=== PATIENT | female | born 1955 | race Caucasian/White ===

== ENCOUNTER → 2019-04-21 | Outpatient (CLI) | payer OTHER ==
[~2019-04-21] MED LIST: AMIT75TA PO; ASCO10004 PO; BIOT10TA PO; CALC-125 PO; CINN500C2 PO; CYAN-27 PO; DOCU-180 PO; GABA300C10 PO; GLUC1TAB27 PO; MV-M1TAB54 PO; NIAC500T9 PO; OXYC-432 PO; POTA99TA24 PO; TIZA4CAP PO
== END | disposition home or self-care (01) ==
LOC: STAR 11:13
PROVIDERS: ATTEND Orthopaedic Surgery
DX: Z01.818 Encounter for other preprocedural examination (principal); S92.345A Nondisplaced fracture of fourth metatarsal bone, left foot, initial encounter for closed fracture; M79.671 Pain in right foot; I10 Essential (primary) hypertension; M25.572 Pain in left ankle and joints of left foot; M51.34 Other intervertebral disc degeneration, thoracic region; M72.2 Plantar fascial fibromatosis; M76.62 Achilles tendinitis, left leg; M54.12 Radiculopathy, cervical region; X58.XXXA Exposure to other specified factors, initial encounter; Y93.89 Activity, other specified; Y92.89 Other specified places as the place of occurrence of the external cause; Y99.8 Other external cause status
CPT/HCPCS: 93005

== ENCOUNTER 2019-05-02 09:11 | Day surgery (SDC) | payer OTHER ==
[~2019-05-02] VITALS: Ht 162.6 cm; Wt 72.6 kg
[2019-05-02] MEDS ORDERED: LACTATED RINGERS 1,000 ML IV SCH (09:37)
[2019-05-02 09:42] VITALS: BP 145/81
[2019-05-02] MEDS ORDERED: FENTANYL PF 100 MCG/2ML ONE ×2 (10:00→13:49)
[2019-05-02] MEDS ORDERED: ROPIvacaine/PF 0.5%, 30 ML ONE ×2 (10:01)
[2019-05-02] MEDS ORDERED: MIDAZOLAM 1 MG/ML, 2ML ONE (10:01)
[2019-05-02] MEDS ORDERED: ROPIvacaine/PF 0.2%, 100ML 550 ML (check volume) INJ ONE (11:30)
[2019-05-02] MEDS ORDERED: HYDROmorphone 2 MG/ML, 1ML IVPush PRN (12:00)
[2019-05-02] MEDS ORDERED: ACETAMINOPHEN 325 MG TABLET PO PRN (12:00)
[2019-05-02] MEDS ORDERED: OXYcodone 5 MG/5 ML ORAL.SOL UDC PO PRN (12:00)
[2019-05-02] MEDS ORDERED: METOPROLOL 1 MG/ML, 5ML IV PRN (12:00)
[2019-05-02] MEDS ORDERED: ALBUTEROL/IPRATROPIUM 2.5MG/0.5MG, 3 ML NPPB PRN (12:00)
[2019-05-02] MEDS ORDERED: MIDAZOLAM 1 MG/ML, 2ML IV PRN (12:00)
[2019-05-02] MEDS ORDERED: MEPERIDINE/PF 25MG/ML,1ML IVPush PRN (12:00)
[2019-05-02] MEDS ORDERED: hydrALAzine 20 MG/ML, 1ML IV PRN (12:00)
[2019-05-02] MEDS ORDERED: PROMETHAZINE 25 MG/ML, 1ML IV PRN (12:00)
[2019-05-02] MEDS ORDERED: PROPOFOL 10 MG/ML, 20ML ONE (12:23)
[2019-05-02] MEDS ORDERED: DEXAMETHASONE 4 MG/ML, 1ML ONE (12:23)
[2019-05-02] MEDS ORDERED: ONDANSETRON 2MG/ML, 2ML ONE (12:23)
[2019-05-02] MEDS ORDERED: CEFAZOLIN 1,000 MG ONE (12:23)
[2019-05-02] MEDS ORDERED: OXYcodone 5 MG/5 ML ORAL.SOL UDC ONE (13:49)
[2019-05-02] MEDS: FENTANYL PF 100 MCG/2ML IV PRN ×2 (13:52→14:01)
== END 2019-05-02 15:30 | disposition home or self-care (01) ==
LOC: OUT 09:11
PROVIDERS: ATTEND Orthopaedic Surgery
DX: M21.371 Foot drop, right foot (principal); Z79.1 Long term (current) use of non-steroidal anti-inflammatories (NSAID); Z79.891 Long term (current) use of opiate analgesic; Z79.899 Other long term (current) drug therapy; Z86.718 Personal history of other venous thrombosis and embolism; Z98.51 Tubal ligation status; Z98.890 Other specified postprocedural states; Z82.61 Family history of arthritis
CPT/HCPCS: 27687; 27691; 64445; 64447; 73620; C1713; J0171; J0690; J1100; J2250; J2370; J2405; J2704; J2795; J3010; J3490; 76000